=== PATIENT | male | born 1985 | race Caucasian/White ===

== ENCOUNTER 2022-04-14 09:52 | Outpatient (REF) | payer BC, SELFPAY ==
[2022-04-14 19:08] LABS: ALT 29 U/L (16-63); AST 29 U/L (15-37); Alkaline Phosphatase 49 U/L (46-116); Anion Gap 9.1 mmol/L (3-11); BUN 18 mg/dL (7-18); Bilirubin, Total 0.6 mg/dL (0.2-1.0); CO2 23.9 mmol/L (21.0-32.0); CREATININE 1.1 mg/dL (0.70-1.30); Calcium 9.1 mg/dL (8.5-10.1); Chloride 104 mmol/L (98-107); Estimated GFR 89.78 (mL/min/1.73m2); Glucose 158 mg/dL (74-106); Potassium 4.4 mmol/L (3.5-5.1); Sodium 137 mmol/L (136-145); Total Protein 7.2 g/dL (6.4-8.2)
== END 2022-04-14 09:53 | disposition home or self-care (01) ==
LOC: NCHCN 09:52
PROVIDERS: PCP Nurse Practitioner Family; Visit Provider Nurse Practitioner Family
DX: R10.11 Right upper quadrant pain (principal)
CPT/HCPCS: 80053

== ENCOUNTER 2022-05-04 12:50 | Outpatient (REF) | payer BC, SELFPAY | END 2022-05-04 12:51 | disposition home or self-care (01) | LOC: NCHCN 12:50 | PROVIDERS: PCP Nurse Practitioner Family; Visit Provider Nurse Practitioner Family | DX: R73.9 Hyperglycemia, unspecified (principal) | CPT/HCPCS: 83036 ==

== ENCOUNTER 2023-05-29 21:48 | Outpatient (REF) | payer BC, SELFPAY ==
[2023-05-29 20:54] LABS: Calculated LDL 102 mg/dL (<100); Cholesterol 171 mg/dL (<200); HDL Cholesterol 56 mg/dL (40-60); Triglyceride 69 mg/dL (<150)
[2023-05-29 20:58] LABS: ALT 37 U/L (16-63); AST 29 U/L (15-37); Alkaline Phosphatase 47 U/L (46-116); Anion Gap 10.6 mmol/L (3-11); BUN 16 mg/dL (7-18); Bilirubin, Total 0.4 mg/dL (0.2-1.0); CO2 25.4 mmol/L (21.0-32.0); CREATININE 1.1 mg/dL (0.70-1.30); Chloride 105 mmol/L (98-107); Estimated GFR 89.22 (mL/min/1.73m2); Glucose 114 mg/dL (74-106); Potassium 4.4 mmol/L (3.5-5.1); Sodium 141 mmol/L (136-145); Total Protein 7.3 g/dL (6.4-8.2)
== END 2023-05-29 21:49 | disposition home or self-care (01) ==
LOC: NCHCN 21:48
PROVIDERS: PCP Nurse Practitioner Family; Visit Provider Nurse Practitioner Family
DX: Z13.220 Encounter for screening for lipoid disorders (principal)
CPT/HCPCS: 80053; 80061

== ENCOUNTER 2024-07-15 19:08 | Outpatient (REF) | payer BC, SELFPAY | END 2024-07-15 19:09 | disposition home or self-care (01) | LOC: NCHCN 19:08 | PROVIDERS: PCP Nurse Practitioner Family; Visit Provider Nurse Practitioner Family | DX: J02.9 Acute pharyngitis, unspecified (principal) | CPT/HCPCS: 87070 ==